=== PATIENT | female | born 1940 ===

== ENCOUNTER 2024-05-20 11:18 | Inpatient (IN) | payer OTHER ==
[~2024-05-20] VITALS: Ht 157.5 cm; Wt 56.7 kg
[2024-05-20] MEDS ORDERED: ELAVIL 25 MG (12:45)
[2024-05-20] MEDS ORDERED: [UNRECOGNIZED DRUG - OTHER] (12:46)
[2024-05-20] MEDS ORDERED: ZARELTO (12:47)
[2024-05-20] MEDS ORDERED: ZIAC (12:47)
[2024-05-20] MEDS ORDERED: LIPITOR 10MG (12:47)
[2024-05-20] MEDS ORDERED: NORVASC2.5 M1 PO (12:47)
[2024-05-20] MEDS ORDERED: SYNTHROID100 MCG PO (12:48)
[2024-05-27] MEDS ORDERED: METRONIDAZOLE/SODIUM CHLORIDE 500 MG/100 ML PIGGYBACK IV ONE (08:30)
[2024-05-27] MEDS ORDERED: LIDOCAINE HCL 1%/EPINEPHRINE 20ML VIAL IJ ONE (08:30)
[2024-05-27] MEDS ORDERED: CEFTRIAXONE SODIUM 2,000 MG VIAL IV ONE (08:30)
[2024-05-27] MEDS ORDERED: BUPIVACAINE HCL 30 ML VIAL IJ ONE (08:30)
[2024-05-27] MEDS ORDERED: RINGERS SOLUTION,LACTATED 1,000 ML IV SCH (09:15)
[2024-05-27] MEDS ORDERED: OxyCODONE HCL 5 MG TABLET (ROXICODONE) PO PRN (09:15)
[2024-05-27] MEDS ORDERED: ONDANSETRON HCL 2 MG/ML VIAL IV PRN (09:15)
[2024-05-27 10:22] LABS: HEMATOCRIT 36.4 % (36.0-45.00); HEMOGLOBIN 11.9 g/dL (12.0-15.00); MEAN CELL VOLUME 91.3 fL (80.00-100.00); MEAN CORPUSCULAR HEMOGLOBIN 29.7 pg (27.00-32.0); MEAN CORPUSCULAR HGB CONC 32.5 g/dl (32.0-36.0); PLATELET COUNT 268 K/uL (150-450); RED BLOOD COUNT 3.99 M/uL (4.00-6.00); RED CELL DISTRIBUTION WIDTH 13.4 % (11.5-14.5)
[2024-05-27] MEDS ORDERED: MEPERIDINE HCL 25 MG/ML AMPUL IV ONE (12:00)
[2024-05-27] MEDS ORDERED: SIMETHICONE 125 MG CAPSULE PO SCH (13:00)
[2024-05-27] MEDS ORDERED: HYOSCYAMINE SULFATE 0.125 MG TAB.SUBL SL SCH (13:00)
[2024-05-27] MEDS ORDERED: ACETAMINOPHEN 500 MG GEL..CAP PO SCH (14:00)
[2024-05-27] MEDS ORDERED: hydrALAZINE HCL 20 MG VIAL IV PRN (14:30)
[2024-05-27 14:41] LABS: ABG PH 7.349 (7.35-7.45); ABG pCO2 43.7 mmHg (35-45); BASE EXCESS -2.2 mmol/l; BICARBONATE 23.6 mmol/l (23-25); SaO2 87.9 %; Tco2 24.9 mmol/l
[2024-05-27 14:55] LABS: ABG PO2 57.8 mmHg (80-100)
[2024-05-27 14:56] LABS: allen test SATISFACTORY; o2 21 %; puncture site RADIAL RIGHT
[2024-05-27] MEDS ORDERED: CELECOXIB 200 MG CAPSULE PO SCH (17:00)
[2024-05-27] MEDS ORDERED: POLYETHYLENE GLYCOL 3350 17 GM BLIST.PACK PO SCH (17:00)
[2024-05-27] MEDS ORDERED: METOCLOPRAMIDE HCL 5 MG/ML VIAL IV SCH (17:00)
[2024-05-27] MEDS ORDERED: GABAPENTIN 300 MG CAPSULE PO SCH (17:00)
[2024-05-27] MEDS ORDERED: AMLODIPINE BESYLATE 5 MG TABLET PO SCH (21:00)
[2024-05-27] MEDS ORDERED: FAMOTIDINE/PF 20 MG/2 ML VIAL IV PUSH SCH (21:00)
[2024-05-27 22:06] VITALS: BP 138/71; O2SAT 94
[2024-05-27 22:21] VITALS: O2SAT 94
[2024-05-28] VITALS (8 sets, daily range): BP systolic 118–126; BP diastolic 59–67; O2SAT 90–96
[2024-05-28 06:46] LABS: HEMOGLOBIN 11.2 g/dL (12.0-15.00); MEAN CELL VOLUME 89.5 fL (80.00-100.00); MEAN CORPUSCULAR HEMOGLOBIN 30.3 pg (27.00-32.0); MEAN CORPUSCULAR HGB CONC 33.8 g/dl (32.0-36.0); PLATELET COUNT 223 K/uL (150-450); RED BLOOD COUNT 3.69 M/uL (4.00-6.00); RED CELL DISTRIBUTION WIDTH 13.8 % (11.5-14.5)
[2024-05-28 07:31] LABS: ALBUMIN 2.7 gm/dL (3.4-5.0); CALCIUM 8.2 mg/dL (8.5-10.1); CREATININE SERUM 0.86 mg/dL (0.55-1.02); GFR 63.17; MAGNESIUM 1.6 mg/dL (1.8-2.4); PHOSPHOROUS 3.7 mg/dL (2.5-4.9); POTASSIUM 4.26 mEq/L (3.5-5.1)
[2024-05-28] MEDS ORDERED: LACTULOSE 20 G/30 ML BLIST.PACK PO SCH (09:00)
[2024-05-28] MEDS ORDERED: IRBESARTAN 150 MG TABLET PO SCH (09:00)
[2024-05-28] MEDS ORDERED: FF) FLECAINIDE ACETATE 50MG TAB PO SCH (09:00)
[2024-05-28] MEDS ORDERED: LACTOBACILLUS ACIDOPHILUS 1 CAP CAP PO SCH (09:00)
[2024-05-28] MEDS ORDERED: MAGNESIUM SULFATE IN WATER 50 ML IV NR (11:15)
[2024-05-28 11:59] LABS: ABG PH 7.403 (7.35-7.45); ABG pCO2 39.8 mmHg (35-45); BASE EXCESS -0.4 mmol/l; BICARBONATE 24.3 mmol/l (23-25); SaO2 90.5 %; Tco2 25.5 mmol/l
[2024-05-28 12:06] LABS: ABG PO2 59.6 mmHg (80-100); o2 21 %
[2024-05-28 12:07] LABS: allen test SATISFACTORY; puncture site RADIAL LEFT
[2024-05-28] MEDS ORDERED: ENOXAPARIN SODIUM 40 MG/0.4 ML SYRINGE SUBCUTANEO SCH (17:00)
[2024-05-28] MEDS ORDERED: ATORVASTATIN CALCIUM 10 MG TABLET PO SCH (17:00)
[2024-05-28] MEDS ORDERED: AMITRIPTYLINE HCL 25 MG TABLET PO SCH (21:00)
[2024-05-28] MEDS ORDERED: 0.9 % SODIUM CHLORIDE 1,000 ML IV SCH (23:00)
[2024-05-29] VITALS (8 sets, daily range): BP systolic 113–135; BP diastolic 61–72; O2SAT 90–100
[2024-05-29] MEDS ORDERED: ENOXAPARIN SODIUM 40 MG/0.4 ML SYRINGE SUBCUTANEO SCH (09:00)
[2024-05-29 10:57] LABS: ABG PO2 118.8 mmHg (80-100); ABG pCO2 38.1 mmHg (35-45); BASE EXCESS -0.7 mmol/l; BICARBONATE 23.6 mmol/l (23-25); SaO2 98.6 %; Tco2 24.8 mmol/l
[2024-05-29 11:05] LABS: allen test SATISFACTORY; o2 100 %; puncture site RADIAL RIGHT
[2024-05-30] VITALS (8 sets, daily range): BP systolic 136–182; BP diastolic 58–72; O2SAT 38–100
[2024-05-30 07:41] LABS: HEMATOCRIT 31.7 % (36.0-45.00); HEMOGLOBIN 10.6 g/dL (12.0-15.00); MEAN CORPUSCULAR HEMOGLOBIN 30.7 pg (27.00-32.0); MEAN CORPUSCULAR HGB CONC 33.3 g/dl (32.0-36.0); PLATELET COUNT 192 K/uL (150-450); RED BLOOD COUNT 3.44 M/uL (4.00-6.00); RED CELL DISTRIBUTION WIDTH 13.7 % (11.5-14.5)
[2024-05-30 07:52] LABS: CALCIUM 7.7 mg/dL (8.5-10.1); CREATININE SERUM 0.85 mg/dL (0.55-1.02); GFR 64.03; MAGNESIUM 1.8 mg/dL (1.8-2.4); PHOSPHOROUS 2.1 mg/dL (2.5-4.9); POTASSIUM 3.91 mEq/L (3.5-5.1)
[2024-05-30] MEDS ORDERED: PANTOPRAZOLE SODIUM 40 MG/VIAL VIAL IV SCH (09:00)
[2024-05-30] MEDS ORDERED: FAMOtidine 20 MG TABLET PO SCH (09:00)
[2024-05-30] MEDS ORDERED: ZIAC PO SCH (09:00)
[2024-05-30] MEDS ORDERED: POTASSIUM PHOS,M-BASIC-D-BASIC 3 MM/ML VIAL IV NR (11:00)
[2024-05-30 13:34] LABS: ABG PH 7.422 (7.35-7.45); ABG pCO2 36.5 mmHg (35-45); BASE EXCESS -0.7 mmol/l; BICARBONATE 23.2 mmol/l (23-25); SaO2 90.4 %; Tco2 24.3 mmol/l
[2024-05-30 13:52] LABS: ABG PO2 58.3 mmHg (80-100); allen test SATISFACTORY; o2 21 %; puncture site RADIAL RIGHT
[2024-05-30] MEDS ORDERED: LEVALBUTEROL HCL 0.63 MG/3 ML SOLUTION IH STA (15:48)
[2024-05-30] MEDS ORDERED: BENZONATATE 100 MG CAPSULE PO SCH (17:00)
[2024-05-30] MEDS ORDERED: DILTIAZEM HCL 125 MG in 0.9 % SODIUM CHLORIDE 100 ML IV SCH (21:00)
[2024-05-30] MEDS ORDERED: BUDESONIDE 0.25 MG/2 ML AMPUL.NEB IH SCH (21:00)
[2024-05-30] MEDS ORDERED: GUAIFENESIN 600 MG TABLET.SA PO SCH (21:00)
[2024-05-30 22:16] LABS: HEMATOCRIT 35.7 % (36.0-45.00); HEMOGLOBIN 12.1 g/dL (12.0-15.00); MEAN CELL VOLUME 89.6 fL (80.00-100.00); MEAN CORPUSCULAR HEMOGLOBIN 30.2 pg (27.00-32.0); MEAN CORPUSCULAR HGB CONC 33.8 g/dl (32.0-36.0); PLATELET COUNT 214 K/uL (150-450); RED BLOOD COUNT 3.99 M/uL (4.00-6.00)
[2024-05-31] VITALS (8 sets, daily range): BP systolic 155–181; BP diastolic 66–75; O2SAT 91–100
[2024-05-31] MEDS ORDERED: LEVALBUTEROL HCL 0.63 MG/3 ML SOLUTION IH SCH
[2024-05-31] MEDS ORDERED: FUROsemide 20 MG/2 ML VIAL IV SCH (13:43)
[2024-05-31 14:11] LABS: PH,URINE 5.5 (5.0-8.0); URINE APPEARANCE Cloudy; URINE BILIRRUBIN Negative (NEGATIVE); URINE BLOOD Large; URINE COLOR Dark Yellow; URINE GLUCOSE Negative (NEGATIVE); URINE KETONE Negative (NEGATIVE); URINE LEUKOCYTE Small; URINE NITRATE Negative; URINE UROBILINOGEN 0.2 E.U./dl
[2024-05-31 14:14] LABS: URINE BACTERIA 253.3 uL (0.0-1933); URINE CAST 1.47 uL (0.0-1.40); URINE EPITHELIAL CELLS 32.7 uL (0.0-38.8); URINE RBC 701.6 uL (0.0-20.8); URINE WBC 75.9 uL (0.0-23.2)
[2024-05-31 14:37] LABS: URINE PROTEIN 100 (NEGATIVE)
[2024-05-31] MEDS ORDERED: METOPROLOL SUCCINATE 25 MG TAB.SR.24H PO NR (15:00)
[2024-06-01] VITALS (7 sets, daily range): BP systolic 135–165; BP diastolic 58–66; O2SAT 91–99
[2024-06-01 07:38] LABS: HEMATOCRIT 29.5 % (36.0-45.00); HEMOGLOBIN 10.1 g/dL (12.0-15.00); MEAN CELL VOLUME 88.6 fL (80.00-100.00); MEAN CORPUSCULAR HEMOGLOBIN 30.2 pg (27.00-32.0); MEAN CORPUSCULAR HGB CONC 34.1 g/dl (32.0-36.0); PLATELET COUNT 181 K/uL (150-450); RED BLOOD COUNT 3.33 M/uL (4.00-6.00); RED CELL DISTRIBUTION WIDTH 13.9 % (11.5-14.5)
[2024-06-01 08:28] LABS: CALCIUM 7.8 mg/dL (8.5-10.1); CREATININE SERUM 0.81 mg/dL (0.55-1.02); GFR 67.69; MAGNESIUM 1.7 mg/dL (1.8-2.4); PHOSPHOROUS 3.3 mg/dL (2.5-4.9); POTASSIUM 3.65 mEq/L (3.5-5.1)
[2024-06-01] MEDS ORDERED: METOPROLOL SUCCINATE 25 MG TAB.SR.24H PO SCH (09:00)
[2024-06-01] MEDS ORDERED: FLUCONAZOLE IN NACL,ISO-OSM 200 MG/100 ML PIGGYBAG IV STA (09:48)
[2024-06-01] MEDS ORDERED: CEFTRIAXONE SODIUM 2,000 MG VIAL IV NR (17:30)
[2024-06-01] MEDS ORDERED: FLUCONAZOLE IN NACL,ISO-OSM 200 MG/100 ML PIGGYBAG IV NR (18:00)
[2024-06-01] MEDS ORDERED: AZITHROMYCIN 500 MG VIAL IV NR (20:00)
[2024-06-02] VITALS (7 sets, daily range): BP systolic 109–124; BP diastolic 54–71; O2SAT 95–98
[2024-06-02 08:33] LABS: MYCOPLASMA PNEUMONIAE IGM NON REACTIVE (NO REACTIVE)
[2024-06-02] MEDS ORDERED: FLUCONAZOLE IN NACL,ISO-OSM 50 ML IV SCH (12:00)
[2024-06-02] MEDS ORDERED: AZITHROMYCIN 2 MG/ML REDILUIDO IV SCH (17:00)
[2024-06-02] MEDS ORDERED: CEFTRIAXONE SODIUM 2,000 MG VIAL IV SCH (17:00)
[2024-06-02] MEDS ORDERED: FLUCONAZOLE IN NACL,ISO-OSM 2 MG/ML ML IV SCH (17:00)
[2024-06-03] VITALS (10 sets, daily range): BP systolic 123–145; BP diastolic 68–74; O2SAT 90–98
[2024-06-03 06:46] LABS: HEMATOCRIT 29.8 % (36.0-45.00); HEMOGLOBIN 10.3 g/dL (12.0-15.00); MEAN CELL VOLUME 89.2 fL (80.00-100.00); MEAN CORPUSCULAR HEMOGLOBIN 30.7 pg (27.00-32.0); MEAN CORPUSCULAR HGB CONC 34.4 g/dl (32.0-36.0); PLATELET COUNT 193 K/uL (150-450); RED BLOOD COUNT 3.34 M/uL (4.00-6.00); RED CELL DISTRIBUTION WIDTH 13.6 % (11.5-14.5)
[2024-06-03 07:20] LABS: CALCIUM 7.9 mg/dL (8.5-10.1); CREATININE SERUM 0.67 mg/dL (0.55-1.02); GFR 84.26; MAGNESIUM 1.5 mg/dL (1.8-2.4); PHOSPHOROUS 2.7 mg/dL (2.5-4.9); POTASSIUM 3.33 mEq/L (3.5-5.1)
[2024-06-03] MEDS ORDERED: POTASSIUM CHLORIDE 20MEQ/100ML H2O PB IV STA (09:12)
[2024-06-03] MEDS ORDERED: MAGNESIUM SULFATE IN WATER 50 ML IV NR (09:45)
[2024-06-04 00:20] VITALS: BP 147/70; O2SAT 91
[2024-06-04 06:19] VITALS: O2SAT 90
[2024-06-04 08:58] VITALS: BP 125/66; O2SAT 91
[2024-06-04] MEDS ORDERED: PANTOPRAZOLE SODIUM 40 MG TABLET.DR PO SCH (09:00)
[2024-06-04 16:22] VITALS: O2SAT 98
[2024-06-04 16:25] VITALS: BP 148/68; O2SAT 97
[2024-06-04 21:02] VITALS: O2SAT 96
[2024-06-05] VITALS (8 sets, daily range): BP systolic 122–143; BP diastolic 65–75; O2SAT 90–96
[2024-06-05 13:13] LABS: ABG PH 7.449 (7.35-7.45); ABG PO2 63.6 mmHg (80-100); ABG pCO2 39.2 mmHg (35-45); BASE EXCESS 2.5 mmol/l; BICARBONATE 26.6 mmol/l (23-25); SaO2 93.2 %; Tco2 27.8 mmol/l
[2024-06-05 13:22] LABS: allen test SATISFACTORY; puncture site RADIAL RIGHT
[2024-06-05 13:23] LABS: o2 21 %
[2024-06-05] MEDS ORDERED: FLUCONAZOLE100 MG PO (16:15)
[2024-06-05] MEDS ORDERED: BISOPROLOL-HCT1 EAC1 PO (16:15)
[2024-06-05] MEDS ORDERED: INTESTINEX680 M1 PO (16:15)
[2024-06-05] MEDS ORDERED: FLECAINIDE ACET50 MG PO (16:15)
[2024-06-05] MEDS ORDERED: XARELTO15 M1 PO (16:15)
[2024-06-05] MEDS ORDERED: AMLODIPINE BESYL5 MG PO (16:15)
[2024-06-05] MEDS ORDERED: AVAPRO150 MG PO (16:15)
[2024-06-05] MEDS ORDERED: AMITRIPTYLINE H25 MG PO (16:15)
[2024-06-05] MEDS ORDERED: SYNTHROID100 MCG PO (16:15)
[2024-06-05] MEDS ORDERED: HYOSCYAMINE0.125 M1 SL (16:15)
[2024-06-05] MEDS ORDERED: AMOX-CLAV 875-1 EAC1 PO (16:15)
== END 2024-06-05 18:15 | disposition home or self-care (01) | DRG 330 ==
LOC: O/R 05-27 04:52 → SURH 05-27 08:30
PROVIDERS: Internal Medicine; Internal Medicine Geriatric Medicine; Internal Medicine Infectious Disease; ADMIT Colon & Rectal Surgery; ATTEND Colon & Rectal Surgery
PROC: 4A12X4Z Monitoring of Cardiac Electrical Activity, External Approach (ICD-10-PCS; 2024-05-27)
PROC: BW24YZZ Computerized Tomography (CT Scan) of Chest and Abdomen using Other Contrast (ICD-10-PCS; 2024-05-29)
PROC: 0DTN4ZZ Resection of Sigmoid Colon, Percutaneous Endoscopic Approach (ICD-10-PCS; principal; 2024-05-30)
PROC: 0DBP4ZZ Excision of Rectum, Percutaneous Endoscopic Approach (ICD-10-PCS; 2024-05-30)
PROC: 0TQB4ZZ Repair Bladder, Percutaneous Endoscopic Approach (ICD-10-PCS; 2024-05-30)
PROC: B24BYZZ Ultrasonography of Heart with Aorta using Other Contrast (ICD-10-PCS; 2024-05-30)
PROC: BW21YZZ Computerized Tomography (CT Scan) of Abdomen and Pelvis using Other Contrast (ICD-10-PCS; 2024-06-01)
PROC: 02HV33Z Insertion of Infusion Device into Superior Vena Cava, Percutaneous Approach (ICD-10-PCS; 2024-06-02)
DX: K57.20 Diverticulitis of large intestine with perforation and abscess without bleeding (principal); K91.72 Accidental puncture and laceration of a digestive system organ or structure during other procedure; K92.1 Melena; N32.1 Vesicointestinal fistula; K66.0 Peritoneal adhesions (postprocedural) (postinfection); R09.02 Hypoxemia; D64.9 Anemia, unspecified; I50.9 Heart failure, unspecified; N18.30 Chronic kidney disease, stage 3 unspecified; E66.9 Obesity, unspecified; E78.5 Hyperlipidemia, unspecified; I87.2 Venous insufficiency (chronic) (peripheral)